=== PATIENT | female | born 1995 | race Caucasian/White ===

== ENCOUNTER 2018-11-25 21:54 | Emergency (ER) | payer SELFPAY ==
[2018-11-25 23:04] LABS: ABSOLUTE EOSINOPHILS # (AUTO) 0.2 10^3/uL (0.0-0.6); ABSOLUTE LYMPHOCYTES (AUTO) 2.2 10^3/uL (0.5-4.7); ABSOLUTE MONOCYTES (AUTO) 0.7 10^3/uL (0.1-1.4); ABSOLUTE NEUT (AUTO) 7.5 10^3/uL (1.7-8.2); BASOPHILS % (AUTO) 0.4 % (0-2); EOSINOPHILS % (AUTO) 1.6 % (0-6); HEMATOCRIT 45.6 % (36.0-47.0); HEMOGLOBIN 16.5 g/dL (12.0-15.5); MEAN CORPUSCULAR HEMOGLOBIN 32.3 pg (27.0-33.4); MEAN CORPUSCULAR HGB CONC 36.1 g/dL (32.0-36.0); MEAN CORPUSCULAR VOLUME 90 fl (80-97); MONOCYTES % (AUTO) 6.9 % (3-13); PLATELET COUNT 313 10^3/uL (150-450); RED BLOOD COUNT 5.09 10^6/uL (3.72-5.28); RED CELL DISTRIBUTION WIDTH 12.7 % (11.5-14.0); SEGMENTED NEUTROPHILS % (AUTO) 70.1 % (42-78); TOTAL CELLS COUNTED % (AUTO) 100 %; WHITE BLOOD COUNT 10.7 10^3/uL (4.0-10.5)
[2018-11-25 23:07] LABS: APPEARANCE,URINE SLIGHTLY-CLOUDY; BILIRUBIN,URINE NEGATIVE (NEGATIVE); COLOR,URINE YELLOW; GLUCOSE, URINE NEGATIVE (NEGATIVE); KETONES,URINE NEGATIVE (NEGATIVE); LEUKOCYTE ESTERASE,URINE TRACE (NEGATIVE); NITRITE,URINE NEGATIVE (NEGATIVE); PROTEIN,URINE NEGATIVE (NEGATIVE); URINE SPECIFIC GRAVITY 1.011; UROBILINOGEN,URINE NEGATIVE mg/dL (<2.0)
--- NOTE | 2018-11-26 03:18 | ER Document Report ---
ED General - General Chief Complaint: Vaginal Bleeding Stated Complaint: VAGINAL BLEEDING Time Seen by Provider: 11/26/18 01:37 Notes: Patient is a pleasant 23-year-old female presents with complaint of vaginal bleeding. Patient just recently moved here from [place]. She states she was on control for a long period time to help control her regular menstrual periods. She says she stopped her control 5 months ago. She says she has had some intermittent spotting since then but over the last couple days she has had recurrent bleeding and some painful cramping. She therefore is come to the ER. She denies any fevers. No abnormal discharge. No other complaints at this time. TRAVEL OUTSIDE OF THE [place] IN LAST 30 DAYS: No - Related Data Allergies/Adverse Reactions: acetaminophen [From Tylenol] Allergy (Verified 11/25/18 22:04) Past Medical History - Social History Smoking Status: Current Every Day Smoker Chew tobacco use (# tins/day): No Frequency of alcohol use: Rare Drug Abuse: None Family History: Reviewed & Not Pertinent Patient has suicidal ideation: No Patient has homicidal ideation: No Renal/ Medical History: Denies: Hx Peritoneal Dialysis Review of Systems - Review of Systems Notes: My Normal Review Basic REVIEW OF SYSTEMS: CONSTITUTIONAL : Denies fever, chills, or sweats. Denies recent illness. EENT: Denies eye, ear, throat, or mouth pain or symptoms. Denies nasal or sinus congestion. GASTROINTESTINAL: Some suprapubic abdominal pain. Denies nausea, vomiting, or diarrhea. GENITOURINARY: Denies difficulty urinating, painful urination, burning, frequency, or blood in urine. FEMALE GENITOURINARY: Vaginal bleeding MUSCULOSKELETAL: Denies neck or back pain or joint pain or swelling. SKIN: Denies rash or skin lesions. NEUROLOGICAL: Denies altered mental status or loss of consciousness. ALL OTHER SYSTEMS REVIEWED AND NEGATIVE. Physical Exam - Vital signs Vitals: Temp Pulse Resp BP Pulse Ox 98.4 F 78 16 123/71 98 11/25/18 22:06 11/25/18 22:06 11/25/18 22:06 11/25/18 22:06 11/25/18 22:06 - Notes Notes: General Appearance: Well nourished, alert, cooperative, no acute distress, mild obvious discomfort. Vitals: reviewed, See vital signs table. Eyes: PERRL, EOMI, Conjuctiva clear Lungs: No wheezing, No rales, No rhonci, No accessory muscle use, good air exchange bilaterally. Heart: Normal rate, Regular rythm, No murmur, no rub Abdomen: Normal BS, soft, No rigidity, mild lower abdominal tenderness to palpation. No rebound tenderness. No guarding. Pelvic: Normal external genitalia. Some blood in the vaginal vault. No clots. No abnormal discharge. Pelvic exam performed with female nurse, Sharron, at bedside. Extremities: good pulses in all extremities, no swelling or tenderness in the extremities, no edema. Skin: warm, dry, appropriate color, no rash Neuro: speech clear, oriented x 3, normal affect, responds appropriately to questions. Course - Re-evaluation Re-evalutation: 11/26/18 05:26 On exam patient did have some vaginal bleeding. She did not have a large clots. The hemorrhage was not at a concerning rate. Her pain did improve significantly Toradol. I will place her on Toradol. I talked her about medication such as tranexamic acid to help with the bleeding. She is a smoker and therefore her risk of clotting does go up. She says she rather hold off on this and follow-up with SENIOR OCCUPATIONAL THERAPIST. Ultrasound did show possible uterine polyp. Informed her she she needs follow-up with SENIOR OCCUPATIONAL THERAPIST and also be reevaluated to see if she truly has uterine polyp and whether or not this needs to be treated or biopsied or if it gets benign in appearance and just requires routine u ltrasound. Patient is understanding of this and agrees to follow-up with gynecology. I strongly encouraged her return to ER if she has recurrent heavy bleeding, dizziness or lightheadedness, or if she feels unwell in any way. Patient agrees with plan and will be discharged home. Dictation of this chart was performed using voice recognition software; therefore, there may be some unintended grammatical errors. - Vital Signs Vital signs: Temp Pulse Resp BP Pulse Ox 98.7 F 72 18 110/72 100 11/26/18 04:23 11/26/18 04:23 11/26/18 04:23 11/26/18 04:23 11/26/18 04:23 - Laboratory Result Diagrams: 11/25/18 22:35 Laboratory results interpreted by me: 11/25/18 11/25/18 22:35 22:35 WBC 10.7 H Hgb 16.5 H MCHC 36.1 H Urine Blood LARGE H Ur Leukocyte Esterase TRACE H Discharge - Discharge Clinical Impression: Dysmenorrhea Condition: Good Disposition: HOME, SELF-CARE Additional Instructions: Please take the toradol with food to help with the cramping pain. Do not take other NSAID medicaitons such as Aspirin, Motrin, Ibuprofen, Aleve, or Advil when taking the Toradol. It is okay to take Tylenol. Please call the [facility] to make a follow-up appointment with an SENIOR OCCUPATIONAL THERAPIST physician. Your ultrasound showed a possible uterine polyp. Sometimes these can contribute to extra bleeding. You will need a repeat ultrasound and repeat reevaluation by SENIOR OCCUPATIONAL THERAPIST to see if you indeed do have a polyp and whether or not it needs to be biopsied. The number to the [facility] is under the name "Selvin Baig" on your discharge instructions. Please continue to try to stop smoking. Prescriptions: Ketorolac Tromethamine [Toradol 10 mg Tablet] 10 mg PO Q8HP PRN #12 tablet PRN Reason: Forms: Return to Work Referrals: SELVIN BAIG MD [ACTIVE STAFF] - Follow up in 3-5 days
--- NOTE | 2018-11-26 03:30 | RADIOLOGY REPORT (SQ) ---
CLINICAL HISTORY: heavy vaginal bleeding COMPARISON: None. TECHNIQUE: US TRANSVAGINAL on 11/26/2018 1:55 AM RECREATION TECHNICIAN FINDINGS: Uterus measures 7.2 cm in greatest dimension. Endometrial stripe measures 10 mm. There is some internal flow within the endometrium. Right ovary measures 2.7 x 3.2 x 3.1 cm and the left ovary measures 3.4 x 2.5 x 3.4 cm. There is patent flow to both ovaries. IMPRESSION: Relatively unremarkable study other than some internal flow within the uterine endometrium. Underlying polyp is not completely excluded.
[2018-11-26 04:23] VITALS: BP 110/72
== END 2018-11-26 04:26 | disposition home or self-care (01) ==
LOC: ER 21:54
DX: N93.8 Other specified abnormal uterine and vaginal bleeding (principal); R10.9 Unspecified abdominal pain; F17.200 Nicotine dependence, unspecified, uncomplicated
CPT/HCPCS: 36415; 76830; 81001; 84703; 85025; 93976; 99284

== ENCOUNTER 2019-04-11 15:11 | Emergency (ER) | payer BC ==
[2019-04-11] MEDS ORDERED: IBUPROFEN 800 MG TABLET PO ONE (15:49)
--- NOTE | 2019-04-11 15:52 | ER Document Report ---
ED Medical Screen (RME) - General Chief Complaint: Abdominal Pain Stated Complaint: CRAMPING Time Seen by Provider: 04/11/19 15:47 Mode of Arrival: Ambulatory Information source: Patient Notes: Patient presents emergency department with complaints of abdominal pain pelvic pressure. Patient reports symptoms started last night. She took Advil last night but did not take anything for the pain today. She reports she has been told that she may have ovarian cyst but has not been evaluated for this. Reports her cramping was so bad that she cried. She did not take anything for pain. Reports her menses started 3 days ago but is tapered off now. She denies fever vomiting diarrhea. Denies nausea. She denies pain with void. I have greeted and performed a rapid initial assessment of this patient. A comprehensive ED assessment and evaluation of the patient, analysis of test results and completion of the medical decision making process will be conducted by additional ED providers. Dictation of this chart was performed using voice recognition software; therefore, there may be some unintended grammatical errors. TRAVEL OUTSIDE OF THE [place] IN LAST 30 DAYS: No - Related Data Allergies/Adverse Reactions: acetaminophen [From Tylenol] Allergy (Verified 04/11/19 15:12) Past Medical History Renal/ Medical History: Denies: Hx Peritoneal Dialysis Physical Exam - Vital signs Vitals: Temp Pulse Resp BP Pulse Ox 97.9 F 87 16 118/77 98 04/11/19 15:19 04/11/19 15:19 04/11/19 15:19 04/11/19 15:19 04/11/19 15:19 Course - Vital Signs Vital signs: Temp Pulse Resp BP Pulse Ox 97.9 F 87 16 118/77 98 04/11/19 15:19 04/11/19 15:19 04/11/19 15:19 04/11/19 15:19 04/11/19 15:19
[2019-04-11 16:43] LABS: ABSOLUTE EOSINOPHILS # (AUTO) 0.1 10^3/uL (0.0-0.6); ABSOLUTE LYMPHOCYTES (AUTO) 1.5 10^3/uL (0.5-4.7); ABSOLUTE MONOCYTES (AUTO) 0.4 10^3/uL (0.1-1.4); BASOPHILS % (AUTO) 0.5 % (0-2); EOSINOPHILS % (AUTO) 1.2 % (0-6); HEMATOCRIT 47.1 % (36.0-47.0); HEMOGLOBIN 16.3 g/dL (12.0-15.5); LYMPHOCYTES % (AUTO) 18.8 % (13-45); MEAN CORPUSCULAR HEMOGLOBIN 31.5 pg (27.0-33.4); MEAN CORPUSCULAR HGB CONC 34.6 g/dL (32.0-36.0); MEAN CORPUSCULAR VOLUME 91 fl (80-97); MONOCYTES % (AUTO) 4.6 % (3-13); PLATELET COUNT 274 10^3/uL (150-450); RED BLOOD COUNT 5.17 10^6/uL (3.72-5.28); RED CELL DISTRIBUTION WIDTH 12.6 % (11.5-14.0); SEGMENTED NEUTROPHILS % (AUTO) 74.9 % (42-78); TOTAL CELLS COUNTED % (AUTO) 100 %
[2019-04-11 16:47] LABS: APPEARANCE,URINE SLIGHTLY-CLOUDY; BILIRUBIN,URINE NEGATIVE (NEGATIVE); COLOR,URINE YELLOW; GLUCOSE, URINE NEGATIVE (NEGATIVE); KETONES,URINE NEGATIVE (NEGATIVE); LEUKOCYTE ESTERASE,URINE NEGATIVE (NEGATIVE); NITRITE,URINE NEGATIVE (NEGATIVE); PROTEIN,URINE NEGATIVE (NEGATIVE); URINE SPECIFIC GRAVITY 1.025; UROBILINOGEN,URINE NEGATIVE mg/dL (<2.0)
[2019-04-11 17:02] LABS: ALANINE AMINOTRANSFERASE 14 U/L (9-52); ALBUMIN 4.3 g/dL (3.5-5.0); ALKALINE PHOSPHATASE 66 U/L (38-126); ANION GAP 9 (5-19); ASPARTATE AMINO TRANSFERASE 30 U/L (14-36); BILIRUBIN,DIRECT 0.4 mg/dL (0.0-0.4); BILIRUBIN,TOTAL 0.6 mg/dL (0.2-1.3); BLOOD UREA NITROGEN 15 mg/dL (7-20); CALCIUM 9.3 mg/dL (8.4-10.2); CARBON DIOXIDE 25 mmol/L (22-30); CHLORIDE 109 mmol/L (98-107); GLUCOSE 114 mg/dL (75-110); POTASSIUM 4.4 mmol/L (3.6-5.0); SODIUM 143.2 mmol/L (137-145); TOTAL PROTEIN 7.7 g/dL (6.3-8.2)
--- NOTE | 2019-04-11 17:23 | RADIOLOGY REPORT (SQ) ---
EXAM DESCRIPTION: U/S NON OB PEL TV W/DOPPLER COMPLETED DATE/TIME: 04/11/2019 4:54 pm REASON FOR STUDY: abd pain, ? cyst COMPARISON: None. TECHNIQUE: Dynamic and static grayscale images acquired of the pelvis via transvaginal approach and recorded on PACS. Additional selected color Doppler and spectral images recorded. LIMITATIONS: None. FINDINGS: UTERUS: Contour normal. No mass. ENDOMETRIAL STRIPE: No focal or generalized thickening. No masses. CERVIX: Tiny nabothian cysts. RIGHT OVARY AND DOPPLER: Normal size. No worrisome masses. Normal arterial vascular flow without evid ence for torsion. LEFT OVARY AND DOPPLER: Normal size. No worrisome masses. Normal arterial vascular flow without evide nce for torsion. FREE FLUID: None noted. OTHER: No other significant finding. MEASUREMENTS: UTERUS: 7.5 x 5.5 x 4.1 cm ENDOMETRIAL STRIPE: 6 mm RIGHT OVARY: 3.1 x 2.6 x 2.2 cm LEFT OVARY: 3.3 x 2.7 x 2.4 cm IMPRESSION: Age-appropriate exam. TECHNICAL DOCUMENTATION: JOB ID: [id number] [place]-72 2010 [employer]- All Rights Reserved Rev Reading location - IP/workstation name: [email or web address]
--- NOTE | 2019-04-11 18:16 | ER Document Report ---
ED GI/ - General Chief Complaint: Abdominal Pain Stated Complaint: CRAMPING Time Seen by Provider: 04/11/19 15:47 Mode of Arrival: Ambulatory Information source: Patient Notes: 23-year-old female presented to ED for complaint of lower abdominal and pelvic pain. She states the symptoms started last night. She states her. Is been going on for couple days. She does not know if this is from her. Or from her ovarian cyst. She states she has been told she had ovarian cyst in the past but is never really been evaluated. She states her menses started 3 days ago. Denies any fever vomiting or diarrhea. She states she has had some nausea. Patient denies any vaginal discharge except for her menstrual cycle. TRAVEL OUTSIDE OF THE [place] IN LAST 30 DAYS: No - HPI Patient complains to provider of: Pelvic pain Onset: Yesterday Timing/Duration: Intermittent Quality of pain: Cramping Severity at maximum: Moderate Severity in ED: Moderate Pain Level: 2 Location: Pelvis Vaginal bleeding (Compared to normal period): Similar LMP: Now Associated symptoms: Nausea Exacerbated by: Movement, Walking Relieved by: Denies Similar symptoms previously: Yes Recently seen / treated by doctor: No - Related Data Allergies/Adverse Reactions: acetaminophen [From Tylenol] Allergy (Verified 04/11/19 15:12) Past Medical History - General Information source: Patient - Social History Smoking Status: Current Every Day Smoker Cigarette use (# per day): Yes - 1/2 to 1 pack/day Chew tobacco use (# tins/day): No Smoking Education Provided: Yes - 4 minutes Frequency of alcohol use: Occasional Drug Abuse: None Occupation: [employer] Lives with: Grandparent(s) Family History: Reviewed & Not Pertinent Patient has suicidal ideation: No Patient has homicidal ideation: No - Past Medical History Cardiac Medical History: Reports: None Pulmonary Medical History: Reports: None EENT Medical History: Reports: None Neurological Medical History: Reports: None Endocrine Medical History: Reports: None Renal/ Medical History: Reports: Hx Ovarian Cysts Malignancy Medical History: Reports: None GI Medical History: Reports: None Musculoskeletal Medical History: Reports None Skin Medical History: Reports None Psychiatric Medical History: Reports: None Traumatic Medical History: Reports: None Infectious Medical History: Reports: None Past Surgical History: Reports: Hx Oral Surgery - [place] teeth and receding gum treatment, Hx Tonsillectomy - Immunizations Immunizations up to date: Yes Hx Diphtheria, Pertussis, Tetanus Vaccination: Yes Review of Systems - Review of Systems Constitutional: No symptoms reported EENT: No symptoms reported Cardiovascular: No symptoms reported Respiratory: No symptoms reported Gastrointestinal: No symptoms reported Genitourinary: No symptoms reported Female Genitourinary: Last menstrual period - Now, Other - Pain pelvic cramping Musculoskeletal: No symptoms reported Skin: No symptoms reported Hematologic/Lymphatic: No symptoms reported Neurological/Psychological: No symptoms reported -: Yes All other systems reviewed and negative Physical Exam - Vital signs Vitals: Temp Pulse Resp BP Pulse Ox 97.9 F 87 16 118/77 98 04/11/19 15:19 04/11/19 15:19 04/11/19 15:19 04/11/19 15:04/11/19 15:19 Interpretation: Normal - General General appearance: Appears well, Alert - HEENT Head: Normocephalic, Atraumatic Eyes: Normal Pupils: PERRL - Respiratory Respiratory status: No respiratory distress Chest status: Nontender Breath sounds: Normal Chest palpation: Normal - Cardiovascular Rhythm: Regular Heart sounds: Normal auscultation Murmur: No - Abdominal Inspection: Normal Distension: No distension Bowel sounds: Normal Tenderness: Other - Cramping on cycle Organomegaly: No organomegaly - Back Back: Normal, Nontender - Extremities General upper extremity: Normal inspection, Nontender, Normal color, Normal ROM, Normal temperature General lower extremity: Normal inspection, Nontender, Normal color, Normal ROM, Normal temperature, Normal weight bearing. No: Kodak's sign - Neurological Neuro grossly intact: Yes Cognition: Normal Orientation: AAOx4 Tere Coma Scale Eye Opening: Spontaneous [place] Coma Scale Verbal: Oriented [place] Coma Scale Motor: Obeys Commands Tere Coma Scale Total: 15 Speech: Normal Motor strength normal: LUE, RUE, LLE, RLE Sensory: Normal - Psychological Associated symptoms: Normal affect, Normal mood - Skin Skin Temperature: Warm Skin Moisture: Dry Skin Color: Normal Course - Re-evaluation Re-evalutation: 04/11/19 19:28 Assessment consistent with menstrual cramping. Labs are normal. Ultrasound negative for any ovarian cyst. Patient states she will follow-up with primary care doctor or return to ED for any increase in symptoms. Patient was discharged home. - Vital Signs Vital signs: Temp Pulse Resp BP Pulse Ox 98.3 F 82 16 116/72 100 04/11/19 18:22 04/11/19 18:22 04/11/19 18:22 04/11/19 18:22 04/11/19 18:22 - Laboratory Result Diagrams: 04/11/19 16:15 04/11/19 16:15 Laboratory results interpreted by me: 04/11/19 04/11/19 04/11/19 16:15 16:15 16:15 Hgb 16.3 H Hct 47.1 H Chloride 109 H Glucose 114 H Urine Blood LARGE H - Diagnostic Test Radiology reviewed: Image reviewed, Reports reviewed Discharge - Discharge Clinical Impression: Abdominal pain Qualifiers: Abdominal location: generalized Qualified Code(s): R10.84 - Generalized abdominal pain Condition: Stable Disposition: HOME, SELF-CARE Instructions: Family Physicians / Practices Additional Instructions: ABDOMINAL PAIN: There are many causes of abdominal pain. Pain can mean a serious problem requiring surgery (such as appendicitis). It can also be an innocent problem that goes away on its own (such as a viral infection). Often, time must pass to determine the cause of pain. The physician does not feel that hospitalization is necessary, at present. Things may change within the next 24 hours. Call the doctor or come back for re- examination if any problems occur, such as: (1) Pain that becomes more severe, steady, or becomes concentrated in one specific area. Also, pain that is more severe with movement or coughing. (2) Vomiting that persists or becomes more frequent. (3) Blood in the vomitus, urine, or bowel movements. Blood in the stool may have a tarry or black appearance. (4) Shaking chills or fever greater than 100 degrees F. (5) The abdomen becomes more distended or swollen. (6) Bowel movements cease. (7) Failure to improve as expected. NORMAL EXAM AND WORKUP: At this time, your examination and workup show no significant abnormality. No significant abnormal physical findings are noted. All laboratory, EKG, and imaging (x-ray, CT scans, ultrasound) studies that were ordered show no significant abnormality. Although your examination and all studies that were ordered showed no significant abnormal finding, there are no examinations and no studies that are 100% accurate. There is always the possibility that some abnormality could exist and not be detected with physical examination or within the limits and capabilities of laboratory and other studies. You should return or follow up as you were instructed on your visit today for further evaluation if your symptoms do not resolve. Antinausea Medication You have been given a medication to suppress nausea and vomiting. This type of medication can be given as a shot, pill, or suppository. It will usually last for many hours. Pills and shots usually last six to eight hours, suppositories last about 12 hours. For the typical illness, only one or two doses of the medication may be necessary. Mild lightheadedness may occur. This type of medicine can cause drowsiness. Do not drive or operate dangerous machinery while under its influence. Do not mix with alcohol. See your doctor at once if you have muscle spasms or tightness, or uncontrollable motions (particularly of the neck, mouth, or jaw). Persistent vomiting or severe lightheadedness should also be evaluated by the physician. FOLLOW-UP CARE: If you have been referred to a physician for follow-up care, call the ysicians office for an appointment as you were instructed or within the next two days. If you experience worsening or a significant change in your symptoms, notify the physician immediately or return to the Emergency Department at any time for re-evaluation. Prescriptions: Ondansetron [Zofran Odt 4 mg Tablet] 1 tab PO Q6H #15 tab.rapdis Forms: Smoking Cessation Education
[2019-04-11 18:23] VITALS: BP 116/72
== END 2019-04-11 18:22 | disposition home or self-care (01) ==
LOC: ER 15:11
DX: R10.84 Generalized abdominal pain (principal); R11.0 Nausea; F17.210 Nicotine dependence, cigarettes, uncomplicated; Z71.6 Tobacco abuse counseling; Z88.6 Allergy status to analgesic agent
CPT/HCPCS: 36415; 76830; 80053; 81001; 81025; 85025; 93976; 99284; 99406

== ENCOUNTER 2019-04-22 22:33 | Emergency (ER) | payer BC ==
--- NOTE | 2019-04-23 00:06 | ER Document Report ---
ED Medical Screen (RME) - General Chief Complaint: Rectal Bleeding Stated Complaint: ANAL LACERATION Time Seen by Provider: 04/23/19 00:04 Notes: Patient is a 24-year-old female presents to the emergency department for extensive bleeding from an anal fissure. Patient states she has had this anal fissure for about the last 6 weeks. States she went to her deputy county clerk who gave her Analpram ointment. States been using as prescribed. States for the last couple of days she has noted heavy bleeding in the toilet after urinating and defecating. Patient states this has become more painful which is why she presents to the emergency room. GENERAL: Alert, interacts well. No acute distress. Anal exam deferred due to patient sitting in triage. I have greeted and performed a rapid initial assessment of this patient. A comprehensive ED assessment and evaluation of the patient, analysis of test results and completion of the medical decision making process will be conducted by additional ED providers. TRAVEL OUTSIDE OF THE [place] IN LAST 30 DAYS: No - Related Data Allergies/Adverse Reactions: acetaminophen [From Tylenol] Allergy (Verified 04/11/19 15:12) Past Medical History Renal/ Medical History: Reports: Hx Ovarian Cysts. Denies: Hx Peritoneal Dialysis Past Surgical History: Reports: Hx Oral Surgery - [place] teeth and receding gum treatment, Hx Tonsillectomy - Immunizations Immunizations up to date: Yes Hx Diphtheria, Pertussis, Tetanus Vaccination: Yes Physical Exam - Vital signs Vitals: Temp Pulse Resp BP Pulse Ox 97.6 F 81 20 108/72 98 04/22/19 23:11 04/22/19 23:11 04/22/19 23:11 04/22/19 23:11 04/22/19 23:11 Course - Vital Signs Vital signs: Temp Pulse Resp BP Pulse Ox 97.6 F 81 20 108/72 98 04/22/19 23:11 04/22/19 23:11 04/22/19 23:11 04/22/19 23:11 04/22/19 23:11
[2019-04-23 00:47] LABS: ABSOLUTE BASOPHILS # (AUTO) 0.1 10^3/uL (0.0-0.2); ABSOLUTE EOSINOPHILS # (AUTO) 0.2 10^3/uL (0.0-0.6); ABSOLUTE LYMPHOCYTES (AUTO) 2.6 10^3/uL (0.5-4.7); ABSOLUTE MONOCYTES (AUTO) 0.5 10^3/uL (0.1-1.4); BASOPHILS % (AUTO) 0.5 % (0-2); EOSINOPHILS % (AUTO) 1.7 % (0-6); HEMATOCRIT 45.8 % (36.0-47.0); HEMOGLOBIN 15.9 g/dL (12.0-15.5); LYMPHOCYTES % (AUTO) 28.1 % (13-45); MEAN CORPUSCULAR HEMOGLOBIN 31.7 pg (27.0-33.4); MEAN CORPUSCULAR HGB CONC 34.7 g/dL (32.0-36.0); MEAN CORPUSCULAR VOLUME 91 fl (80-97); MONOCYTES % (AUTO) 5.7 % (3-13); PLATELET COUNT 286 10^3/uL (150-450); RED BLOOD COUNT 5.02 10^6/uL (3.72-5.28); RED CELL DISTRIBUTION WIDTH 12.9 % (11.5-14.0); TOTAL CELLS COUNTED % (AUTO) 100 %; WHITE BLOOD COUNT 9.3 10^3/uL (4.0-10.5)
[2019-04-23 01:00] LABS: ANION GAP 11 (5-19); BLOOD UREA NITROGEN 15 mg/dL (7-20); CALCIUM 9.4 mg/dL (8.4-10.2); CARBON DIOXIDE 27 mmol/L (22-30); CHLORIDE 106 mmol/L (98-107); GLUCOSE 83 mg/dL (75-110); POTASSIUM 4.4 mmol/L (3.6-5.0); SODIUM 144.4 mmol/L (137-145)
[2019-04-23] MEDS ORDERED: OXYCODONE HCL IR 5 MG TABLET PO ONE (01:28)
--- NOTE | 2019-04-23 01:36 | ER Document Report ---
ED General - General Chief Complaint: Rectal Bleeding Stated Complaint: ANAL LACERATION Time Seen by Provider: 04/23/19 00:04 Mode of Arrival: Ambulatory Information source: Patient Notes: Patient is a 24-year-old female presents to the emergency department for extensive bleeding from an anal fissure. Patient states she has had this anal fissure for about the last 6 weeks. States she went to her roof painter who gave her Analpram ointment. States been using as prescribed. States for the last couple of days she has noted heavy bleeding in the toilet after urinating and defecating. Patient states this has become more painful which is why she presents to the emergency room. Patient reports an upcoming colonoscopy with her roof painter. TRAVEL OUTSIDE OF THE [place] IN LAST 30 DAYS: No - HPI Onset: Other Onset/Duration: Persistent Quality of pain: Throbbing Severity: Moderate Associated symptoms: denies: Body/muscle aches, Chest pain, Productive cough, Fever, Nausea, Vomiting Exacerbated by: Other - Movements Relieved by: Denies Similar symptoms previously: Yes Recently seen / treated by doctor: Yes - Related Data Allergies/Adverse Reactions: acetaminophen [From Tylenol] Allergy (Verified 04/11/19 15:12) Past Medical History - General Information source: Patient - Social History Smoking Status: Current Every Day Smoker Cigarette use (# per day): Yes - 10 Smoking Education Provided: Yes - Smoking cessation counseling was provided for 4 minutes at the bedside Frequency of alcohol use: Occasional Drug Abuse: None Lives with: Spouse/Significant other Family History: Reviewed & Not Pertinent Patient has suicidal ideation: No Patient has homicidal ideation: No Renal/ Medical History: Reports: Hx Ovarian Cysts. Denies: Hx Peritoneal Dialysis Past Surgical History: Reports: Hx Oral Surgery - [place] teeth and receding gum treatment, Hx Tonsillectomy - Immunizations Immunizations up to date: Yes Hx Diphtheria, Pertussis, Tetanus Vaccination: Yes Review of Systems - Review of Systems Notes: REVIEW OF SYSTEMS: CONSTITUTIONAL : Denies fever, chills, or sweats. Denies recent illness. Denies weight loss, recent hospitalizations. EENT: Denies visual changes, eye pain. Denies sore throat, oral lesions, difficulty swallowing. CARDIOVASCULAR: Denies chest pain. Denies palpitations. Denies lower extremity edema. RESPIRATORY: Denies cough. Denies shortness of breath, wheezing. GASTROINTESTINAL: Denies abdominal pain or distention. Denies nausea, vo miting, or diarrhea. Denies blood in vomitus, stools, Denies black, tarry stools. Denies constipation. GENITOURINARY: Denies difficulty urinating, painful urination, frequency, blood in urine, or vaginal discharge. MUSCULOSKELETAL: Denies back or neck pain or stiffness. Denies joint pain or swelling. SKIN: Denies rash, lesions or sores. HEMATOLOGIC : Denies easy bruising or bleeding. LYMPHATIC: Denies swollen glands. NEUROLOGICAL: Denies confusion or altered mental status. Denies loss of consciousness. Denies dizziness or lightheadedness. Denies headache. Denies weakness or paralysis. Denies problems difficulty with ambulation, slurred speech. Denies sensory loss, numbness, or tingling. Denies seizures. PSYCHIATRIC: Denies anxiety or stress. Denies depression, suicidal ideation, or homicidal ideation. Denies visual or auditory hallucinations. Physical Exam - Vital signs Vitals: Temp Pulse Resp BP Pulse Ox 97.6 F 81 20 108/72 98 04/22/19 23:11 04/22/19 23:11 04/22/19 23:11 04/22/19 23:11 04/22/19 23:11 - Notes Notes: PHYSICAL EXAMINATION: GENERAL: Well-appearing, well-nourished and in no acute distress. HEAD: Atraumatic, normocephalic. EYES: Pupils equal round and reactive to light, extraocular movements intact, conjunctiva are normal. ENT: Nares patent, oropharynx clear without exudates. Moist mucous membranes. NECK: Normal range of motion, supple without lymphadenopathy LUNGS: Breath sounds clear to auscultation bilaterally and equal. No wheezes rales or rhonchi. HEART: Regular rate and rhythm without murmurs ABDOMEN: Soft, nontender, nondistended abdomen. No guarding, no rebound. No masses appreciated. Female : No active bleeding no external hemorrhoid Musculoskeletal: Normal range of motion, no pitting or edema. No cyanosis. NEUROLOGICAL: Cranial nerves grossly intact. Normal speech, normal gait. Normal sensory, motor exams PSYCH: Normal mood, normal affect. SKIN: Warm, Dry, normal turgor, no rashes or lesions noted. Course - Re-evaluation Re-evalutation: Temp Pulse Resp BP Pulse Ox 97.6 F 73 20 121/69 100 04/23/19 01:43 04/23/19 01:43 04/22/19 23:11 04/23/19 01:43 04/23/19 01:43 Laboratory 04/23/19 04/23/19 00:20 00:20 WBC 9.3 RBC 5.02 Hgb 15.9 H Hct 45.8 MCV 91 MCH 31.7 MCHC 34.7 RDW 12.9 Plt Count 286 Seg Neutrophils % 64.0 Lymphocytes % 28.1 Monocytes % 5.7 Eosinophils % 1.7 Basophils % 0.5 Absolute Neutrophils 6.0 Absolute Lymphocytes 2.6 Absolute Monocytes 0.5 Absolute Eosinophils 0.2 Absolute Basophils 0.1 Sodium 144.4 Potassium 4.4 Chloride 106 Carbon Dioxide 27 Anion Gap 11 BUN 15 Creatinine 0.92 Est GFR ( Amer) > 60 Est GFR (Non-Af Amer) > 60 Glucose 83 Calcium 9.4 04/23/19 21:49 24-year-old female with established diagnosis of anal fissure under care of gastroenterology presents with concern for significant rectal bleeding with bowel movements. Hemoglobin stable. Patient provided pain medications and Colace. Patient advised to keep her upcoming appointment with gastroenterology. - Vital Signs Vital signs: Temp Pulse Resp BP Pulse Ox 97.6 F 73 20 121/69 100 04/23/19 01:43 04/23/19 01:43 04/22/19 23:11 04/23/19 01:43 04/23/19 01:43 - Laboratory Result Diagrams: 04/23/19 00:20 04/23/19 00:20 Laboratory results interpreted by me: 04/23/19 00:20 Hgb 15.9 H Discharge - Discharge Clinical Impression: Anal fissure, BRBPR (bright red blood per rectum), Rectal pain Condition: Good Disposition: HOME, SELF-CARE Instructions: Anal Fissure ([facility]), Bulk Laxatives, Rectal Bleeding, Unclear Cause ([facility]) Additional Instructions: Please follow-up with your roof painter as scheduled. Prescriptions: Docusate Sodium [Colace 100 mg Capsule] 100 mg PO DAILY #14 capsule Forms: Return to Work
[2019-04-23 01:46] VITALS: BP 121/69
== END 2019-04-23 01:45 | disposition home or self-care (01) ==
LOC: ER 22:33
DX: K60.2 Anal fissure, unspecified (principal); K62.89 Other specified diseases of anus and rectum; K62.5 Hemorrhage of anus and rectum; F17.210 Nicotine dependence, cigarettes, uncomplicated; Z88.6 Allergy status to analgesic agent
CPT/HCPCS: 36415; 80048; 85025; 99283

== ENCOUNTER 2019-05-01 11:30 | Emergency (ER) | payer SELFPAY ==
[2019-05-01 11:52] VITALS: BP 107/76
[2019-05-01] MEDS ORDERED: IBUPROFEN 800 MG TABLET PO ONE (12:27)
--- NOTE | 2019-05-01 12:29 | ER Document Report ---
ED Medical Screen (RME) - General Chief Complaint: Rectal Bleeding Stated Complaint: RECTAL BLEEDING Time Seen by Provider: 05/01/19 12:26 Notes: Patient is a 24-year-old female extended history of anal fissures 3 presents to the emergency room for continued anal bleeding and pain. Patient was at this facility on 531 for same. States she did follow-up with gastrology who placed on "another topical cream." Patient is unsure of the name. States she continues with pain and bleeding which so she presents to the emergency room. GENERAL: Alert, interacts well. No acute distress. SKIN: Warm, dry, normal turgor. [place], no rashes or lesions noted. Rectal exam deferred due to patient being in triage. I have greeted and performed a rapid initial assessment of this patient. A comprehensive ED assessment and evaluation of the patient, analysis of test results and completion of the medical decision making process will be conducted by additional ED providers. This medical record was dictated with voice recognizing software. There may be grammatical, syntax errors that are unintended. TRAVEL OUTSIDE OF THE [place] IN LAST 30 DAYS: No - Related Data Allergies/Adverse Reactions: acetaminophen [From Tylenol] Allergy (Verified 05/01/19 11:30) Past Medical History Renal/ Medical History: Reports: Hx Ovarian Cysts. Denies: Hx Peritoneal Dialysis Past Surgical History: Reports: Hx Oral Surgery - [place] teeth and receding gum treatment, Hx Tonsillectomy - Immunizations Immunizations up to date: Yes Hx Diphtheria, Pertussis, Tetanus Vaccination: Yes Physical Exam - Vital signs Vitals: Temp Pulse Resp BP Pulse Ox 97.7 F 63 15 107/76 97 05/01/19 11:51 05/01/19 11:51 05/01/19 11:51 05/01/19 11:51 05/01/19 11:51 Course - Vital Signs Vital signs: Temp Pulse Resp BP Pulse Ox 97.7 F 63 15 107/76 97 05/01/19 11:51 05/01/19 11:51 05/01/19 11:51 05/01/19 11:51 05/01/19 11:51
[2019-05-01 13:07] LABS: ABSOLUTE BASOPHILS # (AUTO) 0.1 10^3/uL (0.0-0.2); ABSOLUTE EOSINOPHILS # (AUTO) 0.1 10^3/uL (0.0-0.6); ABSOLUTE LYMPHOCYTES (AUTO) 2.2 10^3/uL (0.5-4.7); ABSOLUTE MONOCYTES (AUTO) 0.5 10^3/uL (0.1-1.4); ABSOLUTE NEUT (AUTO) 4.8 10^3/uL (1.7-8.2); BASOPHILS % (AUTO) 0.9 % (0-2); EOSINOPHILS % (AUTO) 1.4 % (0-6); HEMATOCRIT 45.3 % (36.0-47.0); LYMPHOCYTES % (AUTO) 28.9 % (13-45); MEAN CORPUSCULAR HEMOGLOBIN 31.8 pg (27.0-33.4); MEAN CORPUSCULAR HGB CONC 35.4 g/dL (32.0-36.0); MEAN CORPUSCULAR VOLUME 90 fl (80-97); MONOCYTES % (AUTO) 5.9 % (3-13); PLATELET COUNT 265 10^3/uL (150-450); RED BLOOD COUNT 5.04 10^6/uL (3.72-5.28); RED CELL DISTRIBUTION WIDTH 12.5 % (11.5-14.0); SEGMENTED NEUTROPHILS % (AUTO) 62.9 % (42-78); TOTAL CELLS COUNTED % (AUTO) 100 %; WHITE BLOOD COUNT 7.7 10^3/uL (4.0-10.5)
[2019-05-01] MEDS ORDERED: IBUPROFEN 800 MG TABLET ONE (13:29)
--- NOTE | 2019-05-01 15:03 | ER Document Report ---
ED General - General Chief Complaint: Rectal Bleeding Stated Complaint: RECTAL BLEEDING Time Seen by Provider: 05/01/19 12:26 Primary Care Provider: ADDI ZUÑIGA MD [ACTIVE STAFF] - Follow up in 3-5 days Notes: Patient is a 24-year-old female with history of anal fissure that presents to the emergency department for chief complaint of anal pain. Patient reports that she is been diagnosed with an anal fissure, and has not been improving over the past 2 months, she states she is been trying nitroglycerin cream, and an additional cream that she was prescribed by her GI doctor, without any improvement. She states she saw them last , and states that they have not been helping her, so she came to the emergency department to be evaluated. She rates her pain as a 2 out of 10 at rest, worse with bowel movements. She denies being constipated or having diarrhea. Denies any abdominal pain, nausea, vomiting, fevers, chills, night sweats. She states she has not been diagnosed with Crohn's disease, nor has she had a colonoscopy. Past Medical History: Anal fissure Past Surgical History: Tonsillectomy, tympanostomy tubes Social History: Admits to smoking cigarettes, and rare alcohol use, denies illicit drug use. Family History: Reviewed and noncontributory for presenting illness Allergies: Reviewed, see documented allergy list. REVIEW OF SYSTEMS: Other than noted above, the 12 point review of systems was reviewed with the patient and were negative, all pertinent findings are included in the HPI. PHYSICAL EXAMINATION: Vital signs reviewed, nursing noted reviewed. GENERAL: Well-appearing, well-nourished and in no acute distress. HEAD: Atraumatic, normocephalic. EYES: Eyes appear normal, extraocular movements intact, sclera anicteric, conjunctiva are normal. ENT: nares patent, oropharynx clear without exudates. Moist mucous membranes. NECK: Normal range of motion, supple without lymphadenopathy LUNGS: Breath sounds clear to auscultation bilaterally and equal. No wheezes rales or rhonchi. HEART: Regular rate and rhythm without murmurs ABDOMEN: Soft, nontender, normoactive bowel sounds. No rebound, guarding, or rigidity. No masses appreciated. External anal exam: Logistics Assistant present, there is no presence of fissure, or prolapsed hemorrhoids on my exam general exam was deferred at this time due to the patient having rectal pain and bleeding, did not want worsen symptoms at this time. EXTREMITIES: Nontender, good range of motion, no pitting or edema. NEUROLOGICAL: No focal neurological deficits. Moves all extremities spontaneously Motor and sensory grossly intact on exam. PSYCH: Normal mood, normal affect. SKIN: Warm, Dry, normal turgor, no rashes or lesions noted on exposed skin TRAVEL OUTSIDE OF THE [place] IN LAST 30 DAYS: No - Related Data Allergies/Adverse Reactions: acetaminophen [From Tylenol] Allergy (Verified 05/01/19 11:30) Past Medical History - Social History Smoking Status: Current Every Day Smoker Chew tobacco use (# tins/day): No Frequency of alcohol use: Rare Drug Abuse: None Family History: Reviewed & Not Pertinent Patient has suicidal ideation: No Patient has homicidal ideation: No Renal/ Medical History: Reports: Hx Ovarian Cysts. Denies: Hx Peritoneal Dialysis Past Surgical History: Reports: Hx Oral Surgery - [place] teeth and receding gum treatment, Hx Tonsillectomy - Immunizations Immunizations up to date: Yes Hx Diphtheria, Pertussis, Tetanus Vaccination: Yes Physical Exam - Vital signs Vitals: Temp Pulse Resp BP Pulse Ox 97.7 F 63 15 107/76 97 05/01/19 11:51 05/01/19 11:51 05/01/19 11:51 05/01/19 11:51 05/01/19 11:51 Course - Re-evaluation Re-evalutation: Patient seen and examined vital signs reviewed. Laboratory data and/or imaging were ordered as appropriate for the patient's presenting symptoms and complaint, with consideration of any critical or life threatening conditions that may be associated with their obtained history and exam as noted above. Results were reviewed when available and demonstrated unremarkable blood work, and CT imaging of the abdomen and pelvis was negative, there was concern for possible perirectal abscess given the patient having pain, no external fissure noted, however this was negative for any acute findings. The patient was re-evaluated and was stable, patient may have limited inflammatory bowel disease, however not able to determine without biopsy, recommend follow-up with GI, will prescribe the patient hydrocortisone suppositories, as well as lidocaine topical ointments. Evaluation was most consistent with rectal pain and bleeding Results were discussed with the patient at this point, after careful consideration I feel that that patient can be discharged from the emergency department, the patient was educated treatments and reasons to return to the emergency department based on their presumed diagnosis as noted above, they were advised to followup with a primary care physician in 2-3 days. Patient was agreeable to plan of care. *Note is created using voice recognition software and may contain spelling, syntax or grammatical errors. Laboratory 05/01/19 05/01/19 05/01/19 12:39 12:39 16:00 WBC 7.7 RBC 5.04 Hgb 16.0 H Hct 45.3 MCV 90 MCH 31.8 MCHC 35.4 RDW 12.5 Plt Count 265 Seg Neutrophils % 62.9 Lymphocytes % 28.9 Monocytes % 5.9 Eosinophils % 1.4 Basophils % 0.9 Absolute Neutrophils 4.8 Absolute Lymphocytes 2.2 Absolute Monocytes 0.5 Absolute Eosinophils 0.1 Absolute Basophils 0.1 Sodium 140.2 Potassium 4.4 Chloride 106 Carbon Dioxide 25 Anion Gap 9 BUN 11 Creatinine 0.78 Est GFR ( Amer) > 60 Est GFR (Non-Af Amer) > 60 Glucose 84 Calcium 9.6 Urine HCG, Qual NEGATIVE Abdomen/Pelvis CT 05/01/19 15:23 IMPRESSION: No significant findings. - Vital Signs Vital signs: Temp Pulse Resp BP Pulse Ox 97.7 F 63 15 107/76 97 05/01/19 11:51 05/01/19 11:51 05/01/19 11:51 05/01/19 11:51 05/01/19 11:51 - Laboratory Result Diagrams: 05/01/19 12:39 05/01/19 12:39 Laboratory results interpreted by me: 05/01/19 12:39 Hgb 16.0 H Discharge - Discharge Clinical Impression: Rectal pain Condition: Stable Disposition: HOME, SELF-CARE Instructions: Rectal Bleeding, Unclear Cause ([facility]) Additional Instructions: Please follow-up with a cook house laborer, and try the prescribed medications to see if they will help including the cream, and the suppositories Prescriptions: Hydrocortisone Acetate [Anusol Hc 25 mg Supp.rect] 1 supp.rect ND BID #14 supp.rect Lidocaine [Anecream] 1 applic TP BID PRN #30 gm PRN Reason: general pain Forms: Return to Work Referrals: ADDI ZUÑIGA MD [ACTIVE STAFF] - Follow up in 3-5 days
[2019-05-01 17:09] LABS: ANION GAP 9 (5-19); BLOOD UREA NITROGEN 11 mg/dL (7-20); CALCIUM 9.6 mg/dL (8.4-10.2); CARBON DIOXIDE 25 mmol/L (22-30); CHLORIDE 106 mmol/L (98-107); GLUCOSE 84 mg/dL (75-110); POTASSIUM 4.4 mmol/L (3.6-5.0); SODIUM 140.2 mmol/L (137-145)
--- NOTE | 2019-05-01 18:06 | RADIOLOGY REPORT (SQ) ---
EXAM DESCRIPTION: CT ABD/PELVIS WITH IV ONLY COMPLETED DATE/TIME: 05/01/2019 5:55 pm REASON FOR STUDY: rectal pain, bleeding COMPARISON: None. TECHNIQUE: CT scan of the abdomen and pelvis performed using helical scanning technique with dynamic intravenous contrast injection. No oral contrast. Images reviewed with lung, soft tissue, and bone w indows. Reconstructed coronal and sagittal MPR images reviewed. Delayed images for evaluation of the urinary system also acquired. All images stored on PACS. All CT scanners at this facility use dose modulation, iterative reconstruction, and/or weight based d osing when appropriate to reduce radiation dose to as low as reasonably achievable (ALARA). [facility]: Dose Right [facility]: CareDose [facility]: Dose Right [facility]: Teradose 4D [facility]: [employer] CONTRAST TYPE AND DOSE: contrast/concentration: Isovue 350.00 mg/ml; Total Contrast Delivered: 100.0 ml; Total Saline Delivered: 72.0 ml RENAL FUNCTION: None required. The patient is less than 50 years old. RADIATION DOSE: CT Rad equipment meets quality standard of care and radiation dose reduction techniq ues were employed. CTDIvol: 18.2 - 20.0 mGy. DLP: 2347 mGy-cm.. LIMITATIONS: None. FINDINGS: LOWER CHEST: No significant findings. LIVER: Normal size. No enhancing masses. No dilated ducts. SPLEEN: Normal size. No focal lesions. PANCREAS: No masses identified. No significant calcifications. No adjacent inflammation or peripancre atic fluid collections. Pancreatic duct not dilated. GALLBLADDER: No calcified stones. No inflammatory changes to suggest cholecystitis. ADRENAL GLANDS: No significant masses. RIGHT KIDNEY AND URETER: No cysts identified. No solid masses identified. No calcified stones. No hyd ronephrosis or hydroureter. LEFT KIDNEY AND URETER: No cysts identified. No solid masses identified. No calcified stones. No hydr onephrosis or hydroureter. AORTA AND VESSELS: No aneurysm. No dissection. Renal arteries, SMA, celiac without significant stenos is. RETROPERITONEUM: No bulky retroperitoneal adenopathy. BOWEL AND PERITONEAL CAVITY: No obstruction or inflammatory changes. No free fluid. APPENDIX: Normal. PELVIS: No mass. Trace free fluid. Unremarkable bladder. ABDOMINAL WALL: No masses. No hernias. BONES: No acute findings. OTHER: No other significant finding. IMPRESSION: No significant findings. TECHNICAL DOCUMENTATION: JOB ID: [id number] Quality ID # [id number]: Final reports with documentation of one or more dose reduction techniques (e.g., Au tomated exposure control, adjustment of the mA and/or kV according to patient size, use of iterative reconstruction technique) 2010 [employer]- All Rights Reserved Reading location - IP/workstation name: [email or web address]
== END 2019-05-01 19:52 | disposition home or self-care (01) ==
LOC: ER 11:30
DX: K62.89 Other specified diseases of anus and rectum (principal); K62.5 Hemorrhage of anus and rectum; F17.210 Nicotine dependence, cigarettes, uncomplicated; Z88.3 Allergy status to other anti-infective agents
CPT/HCPCS: 36415; 74177; 80048; 81025; 85025; 99284